=== PATIENT | female | born 1990 | race American Indian/Alaskan Native ===

== ENCOUNTER 2018-10-11 00:37 | Outpatient (CLI) | payer MEDICAID ==
[2018-10-11 01:15] VITALS: BP 98/62
== END 2018-10-11 01:55 | disposition home or self-care (01) ==
LOC: TRG 00:37
PROVIDERS: ATTEND Obstetrics & Gynecology
DX: O47.02 False labor before 37 completed weeks of gestation, second trimester (principal); O99.512 Diseases of the respiratory system complicating pregnancy, second trimester; J45.909 Unspecified asthma, uncomplicated; Z3A.24 24 weeks gestation of pregnancy
CPT/HCPCS: 59025

== ENCOUNTER 2018-12-31 15:51 | Observation (INO) | payer MEDICAID ==
[2018-12-31] MEDS ORDERED: LACTATED RINGERS 1,000 ML ONE (17:30)
[2018-12-31] MEDS ORDERED: LACTATED RINGERS 500 ML IV ONE (18:06)
[2018-12-31] MEDS ORDERED: LACTATED RINGERS 1,000 ML IV ONE (18:08)
[2018-12-31] MEDS ORDERED: MORPHINE 2 MG/1 ML INJ IV ONE (18:41)
[2018-12-31 19:52] LABS: Bacteria,Urine 2+ /HPF (Negative); Bilirubin,Urine NEG (Negative); Blood,Urine NEG (Negative); Color,Urine Yellow (Yellow); Mucus,Urine 2+ /HPF; Protein,Urine <15 mg/dL mg/dL (Negative); Urobilinogen,Urine < 2.0 mg/dL (<2.0)
[2018-12-31] MEDS ORDERED: MAGNESIUM HYDROXIDE (MOM) ORAL LIQD UDC PO PRN (21:18)
[2018-12-31] MEDS ORDERED: DOCUSATE SODIUM 100 MG CAP PO PRN (21:18)
[2018-12-31] MEDS ORDERED: ACETAMINOPHEN 325 MG TAB PO PRN (21:18)
[2018-12-31] MEDS ORDERED: MAGNESIUM SULFATE 4 GM/100 ML BAG IV ONE (21:24)
[2018-12-31] MEDS ORDERED: LACTATED RINGERS 1,000 ML IV SCH (22:00)
[2019-01-01] MEDS ORDERED: BUTORPHANOL 2 MG/1 ML INJ IV ONE (00:41)
[2019-01-01 04:16] VITALS: BP 116/62
--- NOTE | 2019-01-01 05:43 | Event Note ---
Date: 01/01/19 (pt agrees with discharge) pt is not true SVE 1/2cm long, OOP NST reactive Cat 1 strip Pt is to keep her appt today in the [place] office aware. D/C instructions given hydration, rest, pelvic rest
[2019-01-01] MEDS ORDERED: PRENATAL VIT27-FE FUMARATE-FOLIC ACID VIT TAB PO SCH (10:00)
== END 2019-01-01 05:54 | disposition home or self-care (01) ==
LOC: TRG 15:51 → LD 21:19
PROVIDERS: ADMIT Obstetrics & Gynecology; ATTEND Obstetrics & Gynecology
DX: O62.9 Abnormality of forces of labor, unspecified (principal); Z3A.35 35 weeks gestation of pregnancy
CPT/HCPCS: 81001; 96365; 96375; G0378; J0595; J2270; J3475; J7120

== ENCOUNTER 2019-01-05 20:24 | Outpatient (CLI) | payer MEDICAID ==
[2019-01-05 21:23] VITALS: BP 119/73
--- NOTE | 2019-01-06 00:09 | Ultrasound Report ---
ULTRASOUND OBSTETRIC LIMITED ULTRASOUND BIOPHYSICAL PROFILE INDICATION / CLINICAL INFORMATION: decrease movement. Clinical gestational age: 36 weeks 4 days. COMPARISON: None available. FINDINGS: BREATHING MOVEMENT = 2 GROSS BODY MOVEMENT = 2 TONE = 2 QUALITATIVE AMNIOTIC FLUID VOLUME = 2 TOTAL BIOPHYSICAL SCORE = 8/8 HEART RATE (beats per minute): 149 AMNIOTIC FLUID INDEX (cm) = 9.0 within normal limits PRESENTATION: Cephalic. ADDITIONAL FINDINGS: None. IMPRESSION: 1. Biophysical Score = 8/8 2. No acute sonographic abnormality. Signer Name: Karel Mandujano MD Signed: 01/06/2019 12:04 AM Workstation Name: [id number]
== END 2019-01-05 21:59 | disposition home or self-care (01) ==
LOC: TRG 20:24
PROVIDERS: ATTEND Obstetrics & Gynecology
DX: O36.8131 Decreased fetal movements, third trimester, fetus 1 (principal); Z3A.36 36 weeks gestation of pregnancy
CPT/HCPCS: 59025; 76815; 76819

== ENCOUNTER 2019-01-14 01:36 | Inpatient (IN) | payer MEDICAID ==
[2019-01-14] MEDS ORDERED: ONDANSETRON 4 MG/2 ML INJ IV PRN (02:42)
[2019-01-14] MEDS ORDERED: BUTORPHANOL 2 MG/1 ML INJ IV PRN (02:42)
[2019-01-14] MEDS ORDERED: MINERAL OIL 30 ML ORAL LIQD PO PRN (02:42)
[2019-01-14] MEDS ORDERED: ePHEDrine SULFATE 50 MG/1 ML INJ IV PRN ×2 (02:42→11:00)
[2019-01-14] MEDS ORDERED: TERBUTALINE 1 MG/1 ML INJ SUB-Q PRN (02:42)
[2019-01-14] MEDS ORDERED: LIDOCAINE (2%) 20 MG/1 ML VIAL 20 ML MDV INFILTRATI ONE (02:42)
[2019-01-14] MEDS ORDERED: LACTATED RINGERS 1,000 ML IV SCH (03:00)
[2019-01-14] MEDS ORDERED: OXYTOCIN 20 UNIT/1000ML DRIP 20 UNITS/1,000 ML BAG IV SCH (03:00)
[2019-01-14 03:05] LABS: Hematocrit 35.6 % (30.3-42.9); Hemoglobin 11.5 gm/dl (10.1-14.3); Mean Corpuscular HGB Conc 32 % (30-34); Mean Corpuscular Volume 85 fl (79-97); Platelet Count 234 K/mm3 (140-440); Red Blood Count 4.19 M/mm3 (3.65-5.03); Red Cell Distribution Width 13.5 % (13.2-15.2)
[2019-01-14 03:22] LABS: Alanine Aminotransferase 18 units/L (7-56)
[2019-01-14] MEDS ORDERED: OXYTOCIN DRIP 30 UNITS/500 ML BAG IV SCH ×2 (04:00→06:00)
[2019-01-14 04:08] LABS: Uric Acid 3.3 mg/dL (3.5-7.6)
[2019-01-14 04:49] LABS: Bilirubin,Urine NEG (Negative); Blood,Urine LG (Negative); Color,Urine Yellow (Yellow); Mucus,Urine 1+ /HPF; Urobilinogen,Urine < 2.0 mg/dL (<2.0)
--- NOTE | 2019-01-14 05:35 | History and Physical Report ---
History of Present Illness Date of examination: 01/14/19 (pt presents with SROM @ 0030 clear fluid) Date of admission: 01/14/19 03:28 History of present illness: EDC Confirmation: 02/02/2019 Gestational Age: 9 weeks Past History : 2 Term Births: 0 Premature Births: 0 Living Children: 0 Para: 0 Mult. Births: 0 Prev : 0 Aborta: 1 Elect. Ab: 0 Spont. 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3 Past Surgical History: negative Past Medical History Anesthesia Complications: negative Anemia: negative Autoimmune Disorder: negative Bleeding Disorder: negative Blood Transfusions: negative Breast Disease: negative Diabetes: negative Heart Disease: negative Hypertension: negative Hepatitis/Liver Disease: negative Kidney Disease/UTI: negative Neurologic/Epilepsy/Migraines: negative Phlebitis/Varicosities: negative Psychiatric: negative Pulmonary Disease/Asthma: negative Thyroid Disease: negative Hospitalizations: negative Surgery (Non-african studies professor): negative Abnormal PAP: negative MARILU Exposure: negative Infertility: negative Uterine Anomaly: negative Uterine Surgery (not C/S): negative Other Gynecologic Problems: negative Family Hx: mom: HTN, heart disease, CHF, stroke maternal gf: stroke Social Hx: performer Infection History Hx of STD: chlamydia, gonorrhea HIV Risk Eval: no Hepatitis B Risk Eval: low risk Personal hx. of genital herpes: no Partner hx. of genital herpes: no Rash, Viral, or Febrile illness since last LMP? no Varicella/Chicken Pox Status: Previous Disease TB Risk: no Genetic History Congenital Heart Defect: Mom: no Dad: no Fartun Disease: Mom: no Dad: no Thalassemia Mom: no Dad: no Neural Tube Defect Mom: no Dad: no Down's Syndrome Mom: no Dad: no Jama-Sachs Mom: no Dad: no Sickle Cell Disease/Trait Mom: no Dad: no Hemophilia Mom: no Dad: no Muscular Dystrophy Mom: no Dad: no Cystic Fibrosis Mom: no Dad: no Giancarlo Chorea Mom: no Dad: no Mental Retardation Mom: no Dad: no Fragile X Mom: no Dad: no Other Genetic/Chromosomal Disorder Mom: no Dad: no Child w/other defect Mom: no Dad: no Enviromental Exposures Xray Exposure: no Medication, drug, or alcohol use since LMP: no Chemical/Other Exposure: no Exposure to Cat Liter: no Hx of Parvovirus (Fifth Disease): no Occupational Exposure to Children: none Active Medications: None Current Allergies (reviewed today): * BACTRUM (Critical) * LATEX (Critical) * PENICILLAN (Critical) * TYLENOL W/ CODIENE (Critical) * AMOXICILLAN (Critical) Past History - Obstetrical History Expected Date of Delivery: 02/02/19 Actual Gestation: 37 Week(s) 2 Day(s) : 2 Para: 0 Hx # Term Pregnancies: 0 Number of Pregnancies: 0 Spontaneous Abortions: 1 Induced : 0 Number of Living Children: 0 Medications and Allergies Allergies Allergy/AdvReac Type Severity Reaction Status Date / Time peanut Allergy Severe Swelling Verified 10/11/18 01:24 acetaminophen [From Tylenol] Allergy Itching Verified 01/13/19 03:45 amoxicillin Allergy Rash Verified 10/11/18 01:26 chocolate flavor Allergy Hives Verified 10/11/18 01:24 Fish Containing Products Allergy Swelling Verified 10/11/18 01:26 latex Allergy Hives Verified 10/11/18 01:24 Sulfa (Sulfonamide Allergy Rash Verified 10/11/18 01:26 Antibiotics) sulfamethoxazole Allergy Rash Verified 10/11/18 01:26 [From Bactrim] trimethoprim [From Bactrim] Allergy Rash Verified 10/11/18 01:26 seafood Allergy Swelling Uncoded 10/11/18 01:26 Home Medications Medication Instructions Recorded Confirmed Last Taken Type Vit-Fe Fumar-FA [ 1 tab PO DAILY 01/05/19 01/14/19 01/13/19 History Vitamin] Active Meds: Active Medications Butorphanol Tartrate (Stadol) 2 mg IV Q2H PRN PRN Reason: Pain , Severe (7-10) Ephedrine Sulfate (Ephedrine Sulfate) 10 mg IV Q2M PRN PRN Reason: Hypotension Oxytocin/Sodium Chloride (Pitocin/Ns 20 Unit/1000ml Drip) 20 units in 1,000 mls @ 125 mls/hr IV DIRECT CAMRON Oxytocin/Sodium Chloride (Pitocin/Ns 30 Unit/500ml) 30 units in 500 mls @ 2 mls/hr IV TITR CAMRON; Protocol Lactated Ringer's (Lactated Ringers) 1,000 mls @ 125 mls/hr IV DIRECT CAMRON Clindamycin HCl (Cleocin 900 Mg/50 Ml) 900 mg in 50 mls @ 100 mls/hr IV Q8HR CAMRON; Protocol Last Admin: 01/14/19 04:15 Dose: 100 mls/hr Documented by: Mineral Oil (Mineral Oil) 30 ml PO QHS PRN PRN Reason: Constipation Ondansetron HCl (Zofran) 4 mg IV Q8H PRN PRN Reason: Nausea And Vomiting Terbutaline Sulfate (Brethine) 0.25 mg SUB-Q ONCE PRN PRN Reason: Hyperstimulation/Hypertonicity - Vital Signs Vital signs: Vital Signs Temp Pulse Resp BP 97.7 F 88 18 134/92 01/14/19 01:57 01/14/19 01:57 01/14/19 01:57 01/14/19 01:57 Temp Pulse Resp BP Pulse Ox 97.7 F 90 18 113/80 97 01/14/19 01:57 01/14/19 04:17 01/14/19 01:57 01/14/19 03:18 01/14/19 04:17 - Physical Exam Breasts: Positive: deferred Cardiovascular: Regular rate, Normal S1, Normal S2 Abdomen: Positive: normal appearance, soft, normal bowel sounds. Negative: distention, tenderness Genitourinary (Female): Positive: normal external genitalia Vulva: both: normal Vagina: Positive: normal moisture. Negative: discharge Cervix: Negative: lesion, discharge Uterus: Positive: normal size, normal contour Adnexa: both: normal Anus/Rectum: Positive: normal perianal skin, heme negative. Negative: rectal mass, hemorrhoids Extremities: Positive: normal Deep Tendon Reflex Grade: Normal +2 - Obstetrical FHR: category 1 Uterine Contraction Pattern: Irregular Uterine Contraction Intensity: Mild Results Result Diagrams: 01/14/19 02:20 01/14/19 02:20 Abnormal lab results 01/14/19 01/14/19 01/14/19 Range/Units 02:20 02:20 04:24 MCH 27 L (28-32) pg Creatinine 0.5 L (0.7-1.2) mg/dL Uric Acid 3.3 L (3.5-7.6) mg/dL Lactate Dehydrogenase 229 H (91-180) units/L Urine WBC (Auto) 76.0 H (0.0-6.0) /HPF U Epithel Cells (Auto) 15.0 H (0-13.0) /HPF All other labs normal. GBS Positive HBsAg Screen Negative Negative *1 RPR Non Reactive Non Reactive *2 Rubella Antibodies, IgG 1.50 index Immune >0.99 *3 Non-immune <0.90 Equivocal 0.90 - 0.99 Immune >0.99 ABO Grouping B *4 Rh Factor Positive *5 Please note: Prior records for this patient's ABO / Rh type are not available for additional verification. Antibody Screen Negative Negative *6 WBC 9.0 x10E3/uL 3.4-10.8 *7 RBC 4.34 x10E6/uL 3.77-5.28 *8 Hemoglobin 11.1 g/dL 11.1-15.9 *9 Hematocrit 34.5 % 34.0-46.6 *10 MCV 80 fL 79-97 *11 MCH [L] 25.6 pg 26.6-33.0 *12 MCHC 32.2 g/dL 31.5-35.7 *13 RDW [H] 17.9 % 12.3-15.4 *14 Platelets 216 x10E3/uL 150-379 *15 Neutrophils 64 % Not Estab. *16 Lymphs 26 % Not Estab. *17 Monocytes 9 % Not Estab. *18 Eos 1 % Not Estab. *19 Basos 0 % Not Estab. *20 ! Immature Cells <No Reported Value> *21 Neutrophils (Absolute) 5.7 x10E3/uL 1.4-7.0 *22 Lymphs (Absolute) 2.4 x10E3/uL 0.7-3.1 *23 Monocytes(Absolute) 0.8 x10E3/uL 0.1-0.9 *24 Eos (Absolute) 0.1 x10E3/uL 0.0-0.4 *25 Baso (Absolute) 0.0 x10E3/uL 0.0-0.2 *26 ! Immature Granulocytes 0 % Not Estab. *27 ! Immature Grans (Abs) 0.0 x10E3/uL 0.0-0.1 *28 ! NRBC <No Reported Value> *29 Hematology Comments: <No Reported Value> *30 Tests: (2) HB Solu + Rflx Fra (688044) Hemoglobin (Hgb) Solubility Negative Negative *31 Tests: (3) Panel 767991 (192602) HIV Screen 4th Generation wRfx Non Reactive Non Reactive *32 Tests: (4) HCV Ab w/Rflx to Verification (376032) ! HCV Ab <0.1 s/co ratio 0.0-0.9 *33 Tests: (5) Comment: (517824) ! Comment: SPRCS *34 Non reactive HCV antibody screen is consistent with no HCV infection, unless recent infection is suspected or other evidence exists to indicate HCV infection. Tests: (6) Urine Culture, Routine ([id number]) Urine Culture, Routine Final report *35 Tests: (7) Result ([id number]) ! Result 1 No growth *36 Assessment and Plan 28yo @ 37 weeks with SROM @ 0030 this AM. Early labor GBS+ POC reviewed with pt and her mom all questions addressed. Orders in EMR - Patient Problems (1) GBS (group B Streptococcus carrier), +RV culture, currently Onset Date: ~01/14/19 Current Visit: Yes Status: Acute Plan to address problem: Clindamycin IVPB per protocol for GBS+ Pt is allergic to PCN (2) SROM (spontaneous rupture of membranes) Onset Date: ~01/14/19 Current Visit: Yes Status: Acute Plan to address problem: Limited SVE; monitor for s/sx of chorio; temp eval per protocol
--- NOTE | 2019-01-14 10:42 | Anesthesia Consultation ---
Anesthesia Consult and Med Hx Date of service: 01/14/19 - Airway Anesthetic Teeth Evaluation: Good ROM Head & Neck: Adequate Mental/Hyoid Distance: Adequate Mallampati Class: Class II - Pulmonary Exam CTA: Yes - Cardiac Exam Cardiac Exam: RRR - Pre-Operative Health Status ASA Pre-Surgery Classification: ASA2 Proposed Anesthetic Plan: Epidural - Pulmonary Hx Smoking: No Hx Asthma: Yes (last attack 2017) Hx Respiratory Symptoms: No SOB: No COPD: No Home Oxygen Therapy: No Hx Pneumonia: No Hx Sleep Apnea: No - Cardiovascular System Hx Hypertension: No Hx Coronary Artery Disease: No Hx Heart Attack/AMI: No Hx Angina: No Hx Percutaneous Transluminal Coronary Angioplasty (PTCA): No Hx Cardia Arrhythmia: No Hx Pacemaker: No Hx Internal Defibrillator: No Hx Valvular Heart Disease: No Hx Heart Murmur: No Hx Peripheral Vascular Disease: No - Central Nervous System Hx Neuromuscular Disorder: No Hx Seizures: No CVA: No Hx Back Pain: No Hx Psychiatric Problems: No - Gastrointestinal Hx Ulcer: No Hx Gastroesophageal Reflux Disease: Yes - Endocrine Hx Renal Disease: No Hx Cirrhosis: No Hx Liver Disease: No Hx Insulin Dependent Diabetes: No Hx Non-Insulin Dependent Diabetes: No Hx Thyroid Disease: No Hx Hypothyroidism: No Hx Hyperthyroidism: No - Hematic Hx Anemia: No Hx Sickle Cell Disease: No - Other Systems Hx Alcohol Use: No Hx Substance Use: No Hx Cancer: No Hx Obesity: No
[2019-01-14] MEDS ORDERED: fentaNYL-BUPIV 2 MCG/ML-0.125% 200 MCG/100 ML BAG EPIDURAL SCH (11:00)
[2019-01-14] MEDS ORDERED: NALOXONE 2 MG/2 ML INJ IV PRN (11:00)
--- NOTE | 2019-01-14 13:45 | Event Note ---
Date: 01/14/19 (comfortable with epidural) SVE 9,100,0 labor down
[2019-01-14] MEDS ORDERED: ACETAMINOPHEN 325 MG TAB PO PRN (14:57)
[2019-01-14] MEDS ORDERED: PROMETHAZINE 25 MG RECT SUPP PR PRN (14:57)
[2019-01-14] MEDS ORDERED: WITCH HAZEL/ GLYCERIN PAD TP PRN (14:57)
[2019-01-14] MEDS ORDERED: diphenhydrAMINE 25 MG CAP PO PRN (14:57)
[2019-01-14] MEDS ORDERED: MAGNESIUM HYDROXIDE (MOM) ORAL LIQD UDC PO PRN (14:57)
[2019-01-14] MEDS ORDERED: LANOLIN/ZINC/DIMETHICONE (LANSINOH) 7 GM TP PRN (14:57)
--- NOTE | 2019-01-14 15:09 | Procedure Note ---
OB Delivery Note - Delivery Date of Delivery: 01/14/19 Esc[place] Clerk: THO HURLEY Estimated blood loss: 300cc - Vaginal Delivery presentation: vertex Delivery position: OA Intrapartum events: PROM->1hr before delivery Delivery induction: none Delivery augmentation: pitocin Delivery monitor: external FHT, external uterine Route of delivery: Delivery placenta: spontaneous Delivery cord: 3 umbilical vessels Episiotomy: midline Delivery laceration: 2nd degree Delivery repair: vicryl Anesthesia: epidural Delivery comments: AIDE team available for delivery over 2nd degree episiotomy Baby to mom's abdomen skin to skin Delayed cord clamping Placenta and membrane delivered complete and intact, 3 vessel cord. Pit IVFs. 2-0 vicryl for repair of laceration. 8/9, EBL 300, Wgt 5-14. Mom and baby remain LDR stable. - Infant A at 1 minute: 8 at 5 minutes: 9 Infant Gender: Female (wgt 5-14)
[2019-01-14] MEDS: IBUPROFEN 600 MG TAB PO SCH (17:54)
[2019-01-15] MEDS: DOCUSATE SODIUM 100 MG CAP PO SCH ×3 (00:26→23:23)
[2019-01-15] MEDS: IBUPROFEN 600 MG TAB PO SCH ×5 (00:26→23:23)
[2019-01-15 04:42] LABS: Hematocrit 28.8 % (30.3-42.9); Hemoglobin 9.4 gm/dl (10.1-14.3)
[2019-01-15] MEDS ORDERED: TETANUS,DIPH,PERTUSS(ACELL) VACCINE 0.5 ML SYRINGE IM ONE ×2 (06:00→14:57)
--- NOTE | 2019-01-15 06:32 | Discharge Summary ---
Providers - Providers Date of Admission: 01/14/19 03:28 Date of discharge: 01/15/19 (desires d/c) Attending physician: EDDIE SCHREIBER Primary care physician: EDDIE SCHREIBER Hospitalization Reason for admission: rupture of membranes, IUP at term Delivery: Episiotomy: midline Laceration: 2nd degree Incision: normal, dry, intact Other procedures: none complications: none Discharge diagnosis: IUP at term delivered [place] baby: female Hospital course: uncomplicated vaginal delivery Pt awake caring for NB No c/o voiced VSS FF below umb Lochia small perineum slight swelling intact H&H 01/03 drop r/t blood loss from surgery No s/sx of anemia Doing well s/p vag delivery P: d/c today with instructions RTO 4 weeks PP care. Condition at discharge: Good Disposition: DC-01 TO HOME OR SELFCARE - Discharge Diagnoses (1) Spontaneous vaginal delivery Status: Acute Comment: RTO 4 weeks PP care Plan - Provider Discharge Summary Activity: routine, no sex for 6 weeks, no heavy lifting 4 weeks, no strenuous exercise Diet: routine Instructions: routine Additional instructions: [] Smoking cessation referral if applicable(refer to patient education folder for contact #) [] Refer to [facility] Booklet Call your doctor immediately for: * Fever > 100.5 * Heavy vaginal bleeding ( >1 pad per hour) * Severe persistent headache * Shortness of breath * Reddened, hot, painful area to leg or breast * Drainage or odor from incision. * Keep incision clean and dry at all times and follow doctor's instructions regarding bathing/showering - Follow up plan Follow up: EDDIE SCHREIBER MD [Primary Care Provider] - 02/16/19 (Congratulations! Please call [phone] to schedule your visit in 4 weeks. Take Motrin/ibuprofen for cramping/pain. Continue to take your vitamins everyday. Call with concerns. )
[2019-01-15] MEDS ORDERED: PRENATAL VIT27-FE FUMARATE-FOLIC ACID VIT TAB PO SCH (10:00)
[2019-01-15] MEDS ORDERED: MEASLES, MUMPS & RUBELLA 12,500 UNIT/0.5 ML VACCINE SUB-Q ONE (14:57)
[2019-01-15 17:34] VITALS: BP 117/78
== END 2019-01-15 23:20 | disposition home or self-care (01) | DRG 775 ==
LOC: TRG 01:36 → UNDOADMIN 02:31 → EEVIPCON 02:31 → LD 02:31 → OB 17:30
PROVIDERS: ADMIT Obstetrics & Gynecology; ATTEND Obstetrics & Gynecology
PROC: 10E0XZZ Delivery of Products of Conception, External Approach (ICD-10-PCS; principal; 2019-01-14)
PROC: 0KQM0ZZ Repair Perineum Muscle, Open Approach (ICD-10-PCS; 2019-01-14)
PROC: 0W8NXZZ Division of Female Perineum, External Approach (ICD-10-PCS; 2019-01-14)
PROC: 3E0R3BZ Introduction of Anesthetic Agent into Spinal Canal, Percutaneous Approach (ICD-10-PCS; 2019-01-14)
PROC: 00HU33Z Insertion of Infusion Device into Spinal Canal, Percutaneous Approach (ICD-10-PCS; 2019-01-14)
PROC: 3E0234Z Introduction of Serum, Toxoid and Vaccine into Muscle, Percutaneous Approach (ICD-10-PCS; 2019-01-15)
DX: O42.92 Full-term premature rupture of membranes, unspecified as to length of time between rupture and onset of labor (principal); O70.1 Second degree perineal laceration during delivery; O99.52 Diseases of the respiratory system complicating childbirth; J45.909 Unspecified asthma, uncomplicated; O99.824 Streptococcus B carrier state complicating childbirth; O99.62 Diseases of the digestive system complicating childbirth; K21.9 Gastro-esophageal reflux disease without esophagitis; Z82.49 Family history of ischemic heart disease and other diseases of the circulatory system; Z82.3 Family history of stroke; Z88.2 Allergy status to sulfonamides; Z37.0 Single live birth; Z3A.37 37 weeks gestation of pregnancy; Z88.1 Allergy status to other antibiotic agents; Z91.040 Latex allergy status; Z91.010 Allergy to peanuts; Z91.013 Allergy to seafood; Z23 Encounter for immunization
CPT/HCPCS: 36415; 59025; 76819; 80307; 81001; 82565; 83615; 84450; 84460; 84550; 85014; 85018; 85027; 86592; 86850; 86900; 86901; 87086; 88307; 90471; 90715; 96360; 96361; G0378; A6250; J0595; J2590; J7120